=== PATIENT | male | born 1965 | race Caucasian/White ===

== ENCOUNTER 2017-01-29 22:49 | Inpatient (IN) | payer OTHER, MEDICARE ==
[~2017-01-29] VITALS: Ht 170.2 cm; Wt 72.2 kg
[~2017-01-29 22:49] MED LIST: ALDA25TA PO; ASPI81TA82 PO; CORE6.25 PO; DOXY100T PO; FURO1TAB93 PO; LISI-360 PO; NITR0.4S SL; ZOCO40TA PO
[2017-01-29] MEDS ORDERED: ASPI1TAB69 PO (22:54)
[2017-01-29] MEDS ORDERED: CARV6.25 PO (22:54)
[2017-01-29] MEDS ORDERED: SPIR25 PO (22:55)
[2017-01-29] MEDS ORDERED: LISI10TA3 PO (22:55)
[2017-01-29] MEDS ORDERED: SIMV40TA PO (22:55)
[2017-01-29 22:56] VITALS: BP 130/81; PULSE 103; RESP 20; TEMP 98.2; O2SAT 95
[2017-01-29 23:14] VITALS: RESP 16; O2SAT 97
[2017-01-29] MEDS ORDERED: NITROGLYCERIN 2% OINT 1 GM PACKET TOP ONE (23:15)
[2017-01-29] MEDS ORDERED: ASPIRIN 81 MG CHEW TAB PO ONE (23:15)
[2017-01-29] MEDS ORDERED: SODIUM CHLORIDE 0.9% FLUSH 10 ML FLUSH IVF PRN (23:15)
[2017-01-29] MEDS ORDERED: SODIUM CHLORID 0.9% 500 ML INJ 500 ML IV ONE (23:15)
[2017-01-29] MEDS ORDERED: NITROGLYCERIN 0.4 MG SL 25 TABS/BTL SL ONE (23:15)
[2017-01-29 23:23] LABS: AUTOMATED NEUTROPHIL # 6.3 TH/MM3 (1.8-7.7); BASOPHIL # 0.1 TH/MM3 (0-0.2); BASOPHIL % 0.6 % (0.0-2.0); EOSINOPHIL # 0.1 TH/MM3 (0-0.4); EOSINOPHIL % 0.7 % (0.0-4.0); HEMATOCRIT 45.9 % (39.0-51.0); HEMO FLAGS DIFF FINAL; LYMPH % 24.8 % (9.0-44.0); LYMPHOCYTE # 2.6 TH/MM3 (1.0-4.8); MEAN CELL VOLUME 91.9 FL (80.0-100.0); MEAN CORPUSCULAR HEMOGLOBIN 32.7 PG (27.0-34.0); MEAN CORPUSCULAR HGB CONC 35.6 % (32.0-36.0); NEUT % 60.9 % (16.0-70.0); PLATELET COUNT 104 TH/MM3 (150-450); RED BLOOD COUNT 4.99 MIL/MM3 (4.50-5.90); RED CELL DISTRIBUTION WIDTH 14.6 % (11.6-17.2); WHITE BLOOD COUNT 10.3 TH/MM3 (4.0-11.0)
[2017-01-29 23:36] LABS: APTT (PATIENT) 33.1 SEC (24.3-30.1); INTERNATIONAL NORMALIZED RATIO 1.2 RATIO; PROTHROMBIN TIME - PATIENT 13.4 SEC (9.8-11.6)
[2017-01-29 23:43] LABS: ANION GAP 14 MEQ/L (5-15)
--- NOTE | 2017-01-29 23:44 | RADRPT ---
EXAM DATE/TIME: 01/29/2017 23:29 [place] COMPARISON: No previous studies available for comparison. INDICATIONS : Chest pain. MEDICAL HISTORY : None. SURGICAL HISTORY : Defibrillator. ENCOUNTER: Initial ACUITY: 1 day PAIN SCORE: 5/10 LOCATION: Bilateral chest FINDINGS: A single view of the chest demonstrates the lungs to be symmetrically aerated without evidence of mas s, infiltrate or effusion. The heart size is mildly enlarged with perihilar edema. Atherosclerotic c hanges noted in the aorta. There is a left subclavian AV sequential transvenous patient with defibril lator leads. Osseous structures are intact. CONCLUSION: Cardiomegaly with no evidence of pulmonary edema. Nagi Dan MD on January 29, 2017 at 23:41 Board Certified Radiologist. This report was verified electronically.
[2017-01-29 23:46] LABS: ALKALINE PHOSPHATASE 139 U/L (45-117); ALT (GPT) 108 U/L (12-78); AST (GOT) 182 U/L (15-37); BICARBONATE 20.7 MEQ/L (21.0-32.0); BLOOD UREA NITROGEN 17 MG/DL (7-18); CHLORIDE 99 MEQ/L (98-107); CREATINE KINASE 828 U/L (39-308); GLOMERULAR FILTRATION RATE 72 ML/MIN (>89); MAGNESIUM 1.8 MG/DL (1.5-2.5); POTASSIUM 3.8 MEQ/L (3.5-5.1); SODIUM (NA) 134 MEQ/L (136-145); TOTAL BILIRUBIN ADULT 4.5 MG/DL (0.2-1.0)
[2017-01-30] VITALS (18 sets, daily range): BP systolic 100–135; BP diastolic 62–84; PULSE 75–99; RESP 10–21; TEMP 97.9–98.5; O2SAT 95–98
--- NOTE | 2017-01-30 | PD ---
HPI Chief Complaint: Chest Pain Time Seen by Provider: 23:12 Travel History International Travel<30 days: No Contact w/Intl Traveler<30days: No Traveled to known affect area: No History of Present Illness HPI The patient is a 51 year old male who presents to the [facility] emergency department with a history of cardiomyopathy with an ejection fraction of 13%, associated with fluid overload 3 years ago requiring a pacemaker and defibrillator placement who presents with a history of binging on alcohol and crack cocaine without taking any of his usual medications over the last 3 days. He reports that he last used crack cocaine an hour and a half ago. He reports that he drink alcohol on a daily basis and usually drinks approximately a 12 pack per day. The patient also reports that he smokes one pack of cigarettes daily. The patient reports that he has generalized weakness currently. He reports that he has chest tightness in the center of his chest. He reports having associated shortness of breath with exertion. He cannot recall when he last had a stress test. 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 The patient reports that he lives in [place]. The patient reports that he has not been eating since Sunday. The patient denies any recent fevers, worsening congestion, however he does have a chronic cough related to smoking, neck pain, abdominal pain, vomiting, diarrhea , urinary symptoms, or neurologic symptoms. [facility] Past Medical History Narrative Medical The patient's past medical history is significant for a cardiomyopathy status post pacemaker and defibrillator placement, arthritis, hyperlipidemia, congestive heart failure, hypertension. Arthritis: Yes Cardiovascular Problems: Yes (pacer/defib 3yrs ago ) High Cholesterol: Yes Congestive Heart Failure: Yes Hypertension: Yes Medical other: Yes (HEP C ) Tetanus Vaccination: Unknown Influenza Vaccination: No Past Surgical History Narrative Surgical The patient's past surgical history is significant for an AICD and pacemaker placement, tonsillectomy. Cardiac Surgery: Yes Pacemaker: Yes (aicd) Tonsillectomy: Yes Social History Alcohol Use: Yes (beer) Tobacco Use: Yes (pack a day ) Substance Use: Yes (crack) Allergies-Medications (Allergen,Severity, Reaction): Coded Allergies: No Known Allergies (Unverified , 01/29/17) Reported Meds & Prescriptions Reported Meds & Active Scripts Active Reported Simvastatin 40 Mg Tab 40 Mg PO HS Aldactone (Spironolactone) 25 Mg Tab 25 Mg PO BIDPC Lisinopril 10 Mg Tab 10 Mg PO DAILY Coreg (Carvedilol) 6.25 Mg Tab 6.25 Mg PO BID Aspirin 81 Mg Tabdr 81 Mg PO DAILY Review of Systems Except as stated in HPI: all other systems reviewed are Neg General / Constitutional: No: Fever Eyes: No: Visual changes HENT: No: Headaches Cardiovascular: Positive: Chest Pain or Discomfort (chest pressure), Dyspnea on exertion Respiratory: Positive: Cough (chronic smoking-related cough), Shortness of Breath Gastrointestinal: No: Nausea, Vomiting, Diarrhea, Abdominal Pain Genitourinary: No: Dysuria Musculoskeletal: No: Pain Skin: No Rash Neurologic: Positive: Weakness (generalized weakness), No: Focal Abnormalities , Change in Mentation, Slurred Speech, Sensory Disturbance Psychiatric: No: Depression Endocrine: No: Polydipsia Hematologic/Lymphatic: No: Easy Bruising Physical Exam Narrative General: The patient is a well-developed well-nourished male in no acute distress. Sleeping on my arrival to the room. Head and Neck exam: Head is normocephalic atraumatic. Eyes: EOMI, pupils are equal round and reactive to light. Nose: Midline septum with pink mucous membranes Mouth: Dentition unremarkable. Moist mucus membranes. Posterior oropharynx is not erythematous. No tonsillar hypertrophy. Uvula midline. Airway patent. Neck: No palpable lymphadenopathy. No nuchal rigidity. No thyromegaly. Cardiovascular: Sinus tachycardia in the low 100s without murmurs, gallops, or rubs. No pulse deficit to the extremities and simultaneous auscultation and palpation of his radial artery. Lungs: Soft expiratory wheezes audible posteriorly. No accessory muscle use. No tripoding. No paroxysmal abdominal breathing. No conversational dyspnea. Abdomen: Soft, without tenderness to palpation in all 4 quadrants of the abdomen. No guarding, rebound, or rigidity. Normal bowel sounds are audible. No tenderness on palpation of McBurney's point. Extremities: No clubbing, cyanosis, or edema. 2+ pulses in all 4 extremities. No calf tenderness on palpation. Back: No costovertebral angle tenderness to palpation. Neurologic Exam: Grossly nonfocal. Skin Exam: No rash noted. Intact skin that is warm and dry. Data Data Last Documented VS Vital Signs Date Time Temp Pulse Resp B/P Pulse Ox O2 Delivery O2 Flow Rate FiO2 01/30/17 01:28 93 18 122/83 97 Room Air 01/29/17 22:56 98.2 Orders Electrocardiogram (01/29/17 23:12) B-Type Natriuretic Peptide (01/29/17 23:12) Ckmb (Isoenzyme) Profile (01/29/17 23:12) Complete Blood Count With Diff (01/29/17 23:12) Comprehensive Metabolic Panel (01/29/17 23:12) Magnesium (Mg) (01/29/17 23:12) Prothrombin Time / Inr (Pt) (01/29/17 23:12) Act Partial Throm Time (Ptt) (01/29/17 23:12) Troponin I (01/29/17:12) Lipase (01/29/17 23:12) Chest, Single Ap (01/29/17 23:12) Ecg Monitoring (01/29/17 23:12) Bilateral Bp Monitoring (01/29/17 23:12) Iv Access Insert/Monitor (01/29/17 23:12) Oximetry (01/29/17 23:12) Oxygen Administration (01/29/17 23:12) Aspirin Chew (Aspirin Chew) (01/29/17 23:15) Nitroglycerin 2% Oint (Nitroglycerin 2% (01/29/17 23:15) Sodium Chloride 0.9% Flush (Ns Flush) (01/29/17 23:15) Nitroglycerin Sl (Nitrostat Sl) (01/29/17 23:15) Sodium Chlorid 0.9% 500 Ml Inj (Ns 500 M (01/29/17 23:15) Drug Screen, Random Urine (01/29/17 23:14) Alcohol (Ethanol) (01/29/17 23:15) CKMB (01/29/17 23:15) CKMB% (01/29/17 23:15) Admit Order (Ed Use Only) (01/30/17 01:30) Labs Laboratory Tests Test 01/29/17 01/30/17:15 01:20 White Blood Count 10.3 TH/MM3 Red Blood Count 4.99 MIL/MM3 Hemoglobin 16.3 GM/DL Hematocrit 45.9 % Mean Corpuscular Volume 91.9 FL Mean Corpuscular Hemoglobin 32.7 PG Mean Corpuscular Hemoglobin 35.6 % Concent Red Cell Distribution Width 14.6 % Platelet Count 104 TH/MM3 Mean Platelet Volume 9.2 FL Neutrophils (%) (Auto) 60.9 % Lymphocytes (%) (Auto) 24.8 % Monocytes (%) (Auto) 13.0 % Eosinophils (%) (Auto) 0.7 % Basophils (%) (Auto) 0.6 % Neutrophils # (Auto) 6.3 TH/MM3 Lymphocytes # (Auto) 2.6 TH/MM3 Monocytes # (Auto) 1.3 TH/MM3 Eosinophils # (Auto) 0.1 TH/MM3 Basophils # (Auto) 0.1 TH/MM3 CBC Comment DIFF FINAL Differential Comment Prothrombin Time 13.4 SEC Prothromb Time International 1.2 RATIO Ratio Activated Partial 33.1 SEC Thromboplast Time B-Type Natriuretic Peptide 810 PG/ML Sodium Level 134 MEQ/L Potassium Level 3.8 MEQ/L Chloride Level 99 MEQ/L Carbon Dioxide Level 20.7 MEQ/L Anion Gap 14 MEQ/L Blood Urea Nitrogen 17 MG/DL Creatinine 1.07 MG/DL Estimat Glomerular Filtration 72 ML/MIN Rate Random Glucose 84 MG/DL Calcium Level 8.4 MG/DL Magnesium Level 1.8 MG/DL Total Bilirubin 4.5 MG/DL Aspartate Amino Transf 182 U/L (AST/SGOT) Alanine Aminotransferase 108 U/L (ALT/SGPT) Alkaline Phosphatase 139 U/L Total Creatine Kinase 828 U/L Creatine Kinase MB 17.9 NG/ML Creatine Kinase MB % 2.2 % Troponin I 0.11 NG/ML Total Protein 8.0 GM/DL Albumin 3.2 GM/DL Lipase 172 U/L Ethyl Alcohol Level 136 MG/DL Urine Opiates Screen NEG Urine Barbiturates Screen NEG Urine Amphetamines Screen NEG Urine Benzodiazepines Screen NEG Urine Cocaine Screen POS Urine Cannabinoids Screen NEG MDM Medical Decision Making Medical Screen Exam Complete: Yes Emergency Medical Condition: Yes Medical Record Reviewed: Yes Interpretation(s) Last Impressions Chest X-Ray 01/29/17 0210 Signed Impressions: Service Date/Time: Sunday, January 29, 2017 23:29 - CONCLUSION: Cardiomegaly with no evidence of pulmonary edema. Nagi Dan MD Differential Diagnosis Acute coronary syndrome, versus dehydration, versus electrolyte derangements, versus alcohol related gastritis, versus esophagitis, versus peptic ulcer disease, versus pancreatitis Narrative Course During the course of the patients emergency department visit, the patients history, examination, and differential diagnosis were reviewed with the patient. The patient had IV access obtained and blood work sent for analysis. The patient was placed on a project buyer with oximetry and blood pressure monitoring. An EKG was done on arrival. The patient's EKG reveals a paced rhythm heart rate of 101, no acute ST segment changes. The patient was initially provided normal saline a 500 mL bolus 1, sublingual nitroglycerin times one when necessary chest pain, nitroglycerin 1 inch to the chest wall, aspirin 162 mg by mouth 1. The patients laboratory studies were reviewed and remarkable for a CBC that shows a white count of 10.3, hemoglobin 16.3, platelets 104 with 13 monocytes, CMP is remarkable for sodium of 134, chloride 99, CO2 20.7, GFR 72, calcium 8.4 , total bilirubin 4.5, AST 182, ALT 108, alkaline phosphatase 139. CPK is a 28 , CK-MB percent is 2.2, troponin I of 0.11, BNP is 810, PT 13.4, INR 1.2, PTT 33.1, urine drug screen positive for cocaine, alcohol level [id number] Radiology studies were reviewed and remarkable for a chest x-ray that shows cardiomegaly with no evidence of pulmonary edema. The patients results were discussed with the patient, including the plan of care. I explained that further testing and/ or monitoring is indicated based on the patients history, examination, and/ or laboratory findings. Therefore, I recommended admission for additional evaluation. The patient expressed understanding and was agreeable with this plan. The patient was admitted to the hospital in stable condition and sent to a bed under the care of the [facility] service. Physician Communication Physician Communication The patient's case was discussed with Dr. Varma who did agree to admit the patient for further evaluation and treatment at this time. Diagnosis Primary Impression: Chest pain, rule out acute myocardial infarction Additional Impressions: History of cardiomyopathy Elevated troponin Admitting Information Admitting Physician Requests: Admit Michelle Roque MD January 30, 2017 00:00
[2017-01-30 00:01] LABS: CKMB 17.9 NG/ML (0.5-3.6)
[2017-01-30 01:56] LABS: AMPHETAMINE, URINE NEG (NEG); BARBITURATES, URINE NEG (NEG); COCAINE, URINE POS (NEG)
[2017-01-30] MEDS ORDERED: NITROGLYCERIN 0.4 MG SL 25 TABS/BTL SL PRN (02:30)
[2017-01-30] MEDS ORDERED: SODIUM CHLORIDE 0.9% FLUSH 10 ML FLUSH IV FLUSH PRN ×2 (02:30→15:00)
[2017-01-30] MEDS ORDERED: NALOXONE HCL 0.4 MG/ML AMP IV PRN (02:30)
[2017-01-30] MEDS: ENOXAPARIN SODIUM 80 MG/0.8 ML SYRINGE SQ SCH ×2 (03:23→14:30)
[2017-01-30 05:41] LABS: CKMB 15.9 NG/ML (0.5-3.6)
[2017-01-30] MEDS ORDERED: SODIUM CHLORIDE 0.9% FLUSH 10 ML FLUSH IV FLUSH SCH (09:00)
[2017-01-30] MEDS ORDERED: ASPIRIN EC 325 MG TABEC PO SCH (09:00)
--- NOTE | 2017-01-30 11:10 | HHI.HP ---
HPI Service [facility] Hospitalists Primary Care Physician Non-Staff Admission Diagnosis cp ro mi, h/o cardiomyopathy, intermediate trop, h/o crack use Diagnoses: Chief Complaint: chest pain Travel History International Travel<30 Days: No Contact w/Intl Traveler <30 Da: No Traveled to Known Affected Are: No History of Present Illness The patient is a 51 year old male with PMH of severe cardiomyopathy with EF of 13% with AICD/PM placement 3 years ago, polysubstance use ( cocaine, EtOH, tobacco), hep C, HTN, HlD, arthritis who presents to the [facility] emergency department with complaints of chest pain after binging on alcohol and crack cocaine without taking any of his usual medications over the last 3 days. He reports that he last used crack cocaine an hour and a half just prior to arrival to ED. He reports that he drink alcohol on a daily basis and usually drinks approximately a 12 pack per day. The patient also reports that he smokes one pack of cigarettes daily. The patient reports that he has generalized weakness currently. He reports that he has chest tightness in the center of his chest 4/10 in intensity. He reports having associated shortness of breath with exertion. He cannot recall when he last had a stress test. He reports that he is due to see his supervisor anodizing in [place] in 2 and 1/2 months. The patient reports that he lives in [place]. The patient reports that he has not been eating since Sunday. Says he had been drinkling and snorting cocaine all this time since Sunday. The patient denies any recent fevers, worsening congestion, however he does have a chronic cough related to smoking. Denies neck pain, abdominal pain, vomiting, diarrhea, urinary symptoms, or neurologic symptoms. Says he has no tremors at this time but he had withdrawal symptoms in the past. Review of Systems ROS Limitations: Clinical Condition, Intoxication Except as stated in HPI: all other systems reviewed are Neg Past Family Social History Past Medical History Cardiomyopathy status post pacemaker and defibrillator placement [address] Hanna cardiology, arthritis, hyperlipidemia, congestive heart failure, hypertension, hep C, polysubstance abuse (cocaine, EtOH, tobacco). Past Surgical History AICD and pacemaker placement, tonsillectomy. Reported Medications Reported Meds & Active Scripts Active Reported Simvastatin 40 Mg Tab 40 Mg PO HS Aldactone (Spironolactone) 25 Mg Tab 25 Mg PO BIDPC Lisinopril 10 Mg Tab 10 Mg PO DAILY Coreg (Carvedilol) 6.25 Mg Tab 6.25 Mg PO BID Aspirin 81 Mg Tabdr 81 Mg PO DAILY Allergies: Coded Allergies: No Known Allergies (Unverified , 01/29/17) Family History His mother had 2 strokes at the age of 79 Father of heart attack at the age of 48 History of cholecystectomy Social History EtOH use: beer 12 beers daily Tobacco use: pack a day1 and 1/2 PPD since age of 16 last use was last night before coming to ED Illicit drug use: crack cocaine, last use was last night before coming to ED Physical Exam Vital Signs Vital Signs Date Time Temp Pulse Resp B/P Pulse Ox O2 Delivery O2 Flow Rate FiO2 01/30/17 10:00 99 18 121/65 96 Room Air 01/30/17 08:00 94 18 123/84 98 Room Air 01/30/17 06:10 92 18 112/73 97 Room Air 01/30/17 04:54 75 18 121/67 97 Room Air 01/30/17 03:40 95 18 103/67 97 Room Air 01/30/17 01:28 93 18 122/83 97 Room Air 01/29/17 23:14 16 97 Room Air 01/29/17 23:14 97 Room Air 01/29/17 22:56 98.2 103 20 130/81 95 Physical Exam GENERAL: This is a skinny 51 yo male, well-nourished, well-developed patient, in no apparent distress. SKIN: No rashes, ecchymoses or lesions. Cool and dry. HEAD: Atraumatic. Normocephalic. No temporal or scalp tenderness. EYES: Pupils equal round and reactive. Extraocular motions intact. No scleral icterus. No injection or drainage. ENT: Nose without bleeding, purulent drainage or septal hematoma. Throat without erythema, tonsillar hypertrophy or exudate. Uvula midline. Airway patent. NECK: Trachea midline. No JVD or lymphadenopathy. Supple, nontender, no meningeal signs. CARDIOVASCULAR: AICD right upper chest . Regular rate and rhythm without murmurs , gallops, or rubs. RESPIRATORY: Clear to auscultation. Breath sounds equal bilaterally. No wheezes , rales, or rhonchi. GASTROINTESTINAL: Abdomen soft, non-tender, nondistended. No hepato-splenomegaly , or palpable masses. No guarding. MUSCULOSKELETAL: Extremities without clubbing, cyanosis, or edema. No joint tenderness, effusion, or edema noted. No calf tenderness. Negative Homans sign bilaterally. NEUROLOGICAL: Awake and alert. Cranial nerves II through XII intact. Motor and sensory grossly within normal limits. Five out of 5 muscle strength in all muscle groups. Normal speech. Laboratory Laboratory Tests Test 01/29/17 01/30/17 01/30/17 23:15 01:20 04:39 White Blood Count 10.3 Red Blood Count 4.99 Hemoglobin 16.3 Hematocrit 45.9 Mean Corpuscular Volume 91.9 Mean Corpuscular Hemoglobin 32.7 Mean Corpuscular Hemoglobin 35.6 Concent Red Cell Distribution Width 14.6 Platelet Count 104 Mean Platelet Volume 9.2 Neutrophils (%) (Auto) 60.9 Lymphocytes (%) (Auto) 24.8 Monocytes (%) (Auto) 13.0 Eosinophils (%) (Auto) 0.7 Basophils (%) (Auto) 0.6 Neutrophils # (Auto) 6.3 Lymphocytes # (Auto) 2.6 Monocytes # (Auto) 1.3 Eosinophils # (Auto) 0.1 Basophils # (Auto) 0.1 CBC Comment DIFF FINAL Differential Comment Prothrombin Time 13.4 Prothromb Time International 1.2 Ratio Activated Partial 33.1 Thromboplast Time B-Type Natriuretic Peptide 810 Sodium Level 134 Potassium Level 3.8 Chloride Level 99 Carbon Dioxide Level 20.7 Anion Gap 14 Blood Urea Nitrogen 17 Creatinine 1.07 Estimat Glomerular Filtration 72 Rate Random Glucose 84 Calcium Level 8.4 Magnesium Level 1.8 Total Bilirubin 4.5 Aspartate Amino Transf 182 (AST/SGOT) Alanine Aminotransferase 108 (ALT/SGPT) Alkaline Phosphatase 139 Total Creatine Kinase 828 576 Creatine Kinase MB 17.9 15.9 Creatine Kinase MB % 2.2 2.8 Troponin I 0.11 0.08 Total Protein 8.0 Albumin 3.2 Lipase 172 Ethyl Alcohol Level 136 Urine Opiates Screen NEG Urine Barbiturates Screen NEG Urine Amphetamines Screen NEG Urine Benzodiazepines Screen NEG Urine Cocaine Screen POS Urine Cannabinoids Screen NEG Result Diagram: 01/29/17231401/29/172314 Imaging Last Impressions Chest X-Ray 01/29/172311 Signed Impressions: Service Date/Time: Sunday, January 29, 2017 23:29 - CONCLUSION: Cardiomegaly with no evidence of pulmonary edema. Nagi Dan MD Assessment and Plan Assessment and Plan 51-year-old male with: Elevated troponin. Chest pain, rule out acute myocardial infarction, likely 2/2 cocaine use. History of cardiomyopathy Polysubstance use( cocaine, EtOH, Tobacco use) Thrombocytopenia PLT 104 on admission. Monitor for bleeding. Transaminitis ( AST 182, ALT 108 On admission). Hep C. Coagulopathy INR 1.2 Monitor for bleeding. Monitor INR, CMP. HTN HLD EKG reveals a paced rhythm heart rate of 101, no acute ST segment changes. Initial Troponin 0.11 on admission Trend trops Monitor on telemetry Check 2D ECHO Check AICD Consult cardiology Chest x-ray reviewed that shows cardiomegaly with no evidence of pulmonary edema. Received normal saline a 500 mL bolus 1, sublingual nitroglycerin x1, nitroglycerin 1 inch to the chest wall, aspirin 162 mg by mouth 1 in the ED Continue Lisinopril 10 Mg PO DAILY, Aldactone 25 Mg PO BIDPC, Aspirin 81 Mg Tabdr 81 Mg PO DAILY, Simvastatin 20 Mg PO HS HOLD Carvedilol 6.25 Mg PO BID ( patient with cocaine use) Urine drug screen positive for cocaine, alcohol level 136. Start CIWA protocol. Monitor lytes. Monitor for withdrawal symptoms. Counselled extensively regarding polysubstance use Monitor VS DVT ppx SCD/TEDs Discussed Condition With Patient, nurse Physician Certification 2 Midnight Certification Type: Admission for Inpatient Services Order for Inpatient Services The services are ordered in accordance with Medicare regulations or non- Medicare payer requirements, as applicable. In the case of services not specified as inpatient-only, they are appropriately provided as inpatient services in accordance with the 2-midnight benchmark. Estimated LOS (days): 3 days is the estimated time the patient will need to remain in the hospital, assuming treatment plan goals are met and no additional complications. Post-Hospital Plan: Home Shoshana Miles MD January 30, 2017 11:10
--- NOTE | 2017-01-30 14:19 | EKG ---
Date Performed: 01/29/2017 Time Performed: 22:56:11 PTAGE: 51 years EKG: ELECTRONIC VENTRICULAR PACEMAKER ABNORMAL RHYTHM ECG NO PREVIOUS TRACING DOCTOR: Gold James Interpretating Date/Time 01/30/2017 14:17:16
--- NOTE | 2017-01-30 14:19 | EKG ---
Date Performed: 01/30/2017 Time Performed: 05:22:46 PTAGE: 51 years EKG: ELECTRONIC VENTRICULAR PACEMAKER ABNORMAL RHYTHM ECG NO PREVIOUS TRACING DOCTOR: Gold James Interpretating Date/Time 01/30/2017 14:17:11
[2017-01-30] MEDS ORDERED: cloNIDine HCL 0.1 MG TAB PO PRN (15:00)
[2017-01-30] MEDS ORDERED: LORazepam 1 MG TAB PO PRN (15:00)
[2017-01-30] MEDS ORDERED: FLUMAZENIL 0.5 MG/5 ML VIAL IV PUSH PRN (15:00)
[2017-01-30] MEDS ORDERED: LORazepam 2 MG/ML VIAL IV PUSH PRN ×3 (15:00)
[2017-01-30] MEDS ORDERED: CHLORHEXIDINE GLUCONATE 2 % 1 PACK (2 CLOTHS)(extra cloths) TOPICAL PRN (15:00)
[2017-01-30] MEDS ORDERED: ONDANSETRON HCL 4 MG/2 ML VIAL IV PRN (15:00)
[2017-01-30] MEDS ORDERED: LORazepam 2 MG TAB PO PRN (15:00)
[2017-01-30 15:02] LABS: CKMB 12.3 NG/ML (0.5-3.6)
[2017-01-30] MEDS ORDERED: MORPHINE SULFATE 4 MG/ML INJ IV PUSH PRN (15:15)
--- NOTE | 2017-01-30 18:29 | MB ---
cc: DAVID DIEHL MD DATE OF CONSULTATION 01/30/2017 REASON FOR CONSULTATION Chest pain and elevated cardiac enzymes. HISTORY OF THE PRESENT ILLNESS Mr. Figueroa is a 51-year-old man who does have a history of an alcoholic cardiomyopathy with a [employer] ICD. He reports he had been drinking a lot of alcohol and subsequently tried some crack cocaine. He has no real recollection of the specifics but notes that he believes his ICD went off sometime over the weekend. He cannot recall much in the way of details. He does continue to have intermittent episodes now of chest pain as well as other muscle cramps. The patient reports that he has not eaten in four days. PAST MEDICAL HISTORY Significant for: 1. Non ischemic cardiomyopathy with an EF of about 15%. 2. ICD placement. 3. Hypertension. 4. Hyperlipidemia. 5. Congestive heart failure. 6. Hepatitis C. 7. Polysubstance abuse. 8. Alcohol abuse 9. And tobacco abuse. MEDICATIONS Outpatient medications reportedly include: 1. Simvastatin. 2. Aldactone. 3. Lisinopril. 4. Coreg. 5. Aspirin. ALLERGIES NO KNOWN DRUG ALLERGIES. FAMILY HISTORY Positive for CAD and alcohol abuse. SOCIAL HISTORY The patient does continue to drink and smoke as well as occasionally has cocaine. REVIEW OF SYSTEMS Except as mentioned in the HPI all 12 systems negative. PHYSICAL EXAMINATION VITAL SIGNS: On physical examination vital signs 98.3, 83, 100/62. GENERAL: He is a well-appearing man who is in no apparent distress. NECK: Free from JVD. LUNGS: Are bilaterally clear to auscultation. CARDIOVASCULAR: He has a normal S1-S2. Did not appreciate murmurs, rubs or gallops. ABDOMEN: Soft. EXTREMITIES: Are free from edema. LABORATORY FINDINGS Significant for serial troponins of 0.11 / 0.08 / 0.08. His CKMB percent are all less than 5.0 and his initial total CK was elevated at 828. Urine screen was positive for cocaine and alcohol. EKG shows paced rhythm. IMPRESSION Chest pain with elevated troponin - the patient does have a history of a nonischemic cardiomyopathy and does have an elevated troponin. The MB percent was negative and actually more consistent with rhabdomyolysis picture versus ischemic picture. At this point I would like to obtain some of his previous records prior to considering any kind of ischemia workup as this is a relatively low likelihood. Acute on chronic systolic heart failure - the patient does have mildly elevated troponin and elevated BNP, perihilar edema on chest x-ray as well as a known cardiomyopathy. He is on lisinopril. Beta-blockers are felt relatively contraindicated with his crack cocaine. I would place him on some diuretics given his profoundly low ejection fraction. Polysubstance abuse - the patient was counseled to quit. Tobacco abuse - the patient was counseled to quit. David Diehl M.D. BAB/KK /6:00 PM /6:14 PM
[2017-01-30] MEDS: SPIRONOLACTONE 25 MG TAB PO SCH (19:06)
[2017-01-30] MEDS ORDERED: PRAVASTATIN SOD 80 MG TAB PO SCH (21:00)
[2017-01-30] MEDS: FAMOTIDINE 20 MG TAB PO SCH (21:44)
[2017-01-30] MEDS: POTASSIUM CHLORIDE 20 MEQ CONTROLLED RELEASE TAB PO SCH (21:45)
[2017-01-30] MEDS: SODIUM CHLORIDE 0.9% FLUSH 10 ML FLUSH IV FLUSH SCH (21:45)
[2017-01-30] MEDS: LORazepam 2 MG/ML VIAL IV PUSH PRN (21:48)
[2017-01-31] VITALS (15 sets, daily range): BP systolic 103–132; BP diastolic 63–78; PULSE 71–99; RESP 14–27; TEMP 97.9–98.8; O2SAT 94–98
[2017-01-31] MEDS: ENOXAPARIN SODIUM 80 MG/0.8 ML SYRINGE SQ SCH ×2 (02:30→14:30)
[2017-01-31] MEDS: LORazepam 2 MG/ML VIAL IV PUSH PRN (03:14)
[2017-01-31] MEDS ORDERED: CHLORHEXIDINE GLUCONATE 2 % 1 PACK (2 CLOTHS)(taper/protocol) TOPICAL SCH (04:00)
[2017-01-31 05:10] LABS: ALT (GPT) 93 U/L (12-78); ANION GAP 7 MEQ/L (5-15); AST (GOT) 158 U/L (15-37); BICARBONATE 28.5 MEQ/L (21.0-32.0); BLOOD UREA NITROGEN 13 MG/DL (7-18); CHLORIDE 103 MEQ/L (98-107); GLOMERULAR FILTRATION RATE 122 ML/MIN (>89); MAGNESIUM 1.8 MG/DL (1.5-2.5); POTASSIUM 3.7 MEQ/L (3.5-5.1); SODIUM (NA) 138 MEQ/L (136-145)
[2017-01-31 05:12] LABS: ALKALINE PHOSPHATASE 173 U/L (45-117); TOTAL BILIRUBIN ADULT 2.9 MG/DL (0.2-1.0)
--- NOTE | 2017-01-31 06:21 | PD.CARD.PN ---
Subjective Subjective Remarks Pt c/o ache all over- no cardiac complaints Objective Medications Current Medications Medications (Trade) Dose Ordered Sig/Viviane Route Start Time Stop Time Status Last Admin (Narcan Inj) 0.4 mg UNSCH PRN IV 01/30/17 02:30 (Lovenox Inj) 75 mg Q12H SQ 01/30/17 02:30 01/31/17 02:30 (Nitrostat Sl) 0.4 mg Q5M PRN SL 01/30/17 02:30 Miscellaneous Information Patient in critical care unit? Ass... [id number] .XX 01/30/17 15:00 01/30/17 15:00 (Chlorhexidine 2% Cloth) 3 pack DAILY@04 TOPICAL 01/31/17 04:00 02/04/17 04:01 01/30/17 21:46 (Chlorhexidine 2% Cloth) 3 pack UNSCH PRN TOPICAL 01/30/17 15:00 02/04/17 14:58 (NS Flush) 2 ml UNSCH PRN IV FLUSH 01/30/17 15:00 (NS Flush) 2 ml BID IV FLUSH 01/30/17 21:00 01/30/17 21:45 (Folate) 1 mg DAILY PO 01/31/17 09:00 02/05/17 08:59 (Vitamin B1) 100 mg DAILY PO 01/31/17 09:00 (Theragran M Tab) 1 tab DAILY PO 01/31/17 09:00 02/05/17 08:59 (Zofran Inj) 4 mg Q6H PRN IV 01/30/17 15:00 (Pepcid) 20 mg BID PO 01/30/17 21:00 01/30/17 21:44 (Catapres) 0.1 mg Q6H PRN PO 01/30/17 15:00 (Romazicon Inj) 0.2 mg Q1M PRN IV PUSH 01/30/17 15:00 (Ativan) 1 mg Q4H PRN PO 01/30/17 15:00 (Ativan Inj) 1 mg Q4H PRN IV PUSH 01/30/17 15:00 01/31/17 03:14 (Ativan) 2 mg Q2H PRN PO 01/30/17 15:00 (Ativan Inj) 2 mg Q2H PRN IV PUSH 01/30/17 15:00 (Ativan Inj) 2 mg Q1H PRN IV PUSH 01/30/17 15:00 (Ativan Inj) 2 mg Q15M PRN IV PUSH 01/30/17 15:00 (Morphine Inj) 2 mg Q4HR PRN IV PUSH 01/30/17 15:15 (Ecotrin Ec) 81 mg DAILY PO 01/31/17 09:00 (Prinivil) 10 mg DAILY PO 01/31/17 09:00 (Aldactone) 25 mg BIDPC PO 01/30/17 18:00 01/30/17 19:06 (Pravachol) 80 mg HS PO 01/30/17 21:00 01/30/17 21:45 (Lasix) 40 mg BID@18 PO 01/31/17 09:00 (KCl) 20 meq Q12HR PO 01/30/17 21:00 01/30/17 21:45 Vital Signs / I&O Vital Signs Date Time Temp Pulse Resp B/P Pulse Ox O2 Delivery O2 Flow Rate FiO2 01/31/17 06:00 76 01/31/17 04:00 76 01/31/17 04:00 98.3 76 17 112/63 94 01/31/17 02:00 76 01/31/17 00:00 98.8 77 14 132/77 96 01/31/17 00:00 77 01/30/17 22:00 87 01/30/17 20:00 98.5 86 21 130/81 97 01/30/17 20:00 86 01/30/17 18:00 95 01/30/17 17:00 80 01/30/17 16:00 98.3 82 14 100/62 97 01/30/17 16:00 83 01/30/17 15:00 84 01/30/17 15:00 84 21 97 01/30/17 14:00 76 01/30/17 14:00 76 19 98 01/30/17 13:00 80 20 96 01/30/17 13:00 80 01/30/17 12:00 88 01/30/17 12:00 88 10 110/62 96 01/30/17 11:30 88 01/30/17 11:15 88 01/30/17 11:03 97.9 91 21 135/71 95 01/30/17 11:03 91 01/30/17 10:00 99 18 121/65 96 Room Air 01/30/17 08:00 94 18 123/84 98 Room Air I/O 01/30/17 01/30/17 01/30/17 01/31/17 01/31/17 01/31/17 07:00 15:00 23:00 07:00 15:00 23:00 Intake Total 240 ml 960 ml 970 ml 150 ml Output Total 800 ml 200 ml 450 ml Balance 240 ml 160 ml 770 ml -300 ml Intake Oral 240 ml 960 ml 970 ml 150 ml Output Urine Total 800 ml 200 ml 450 ml # Voids 1 # Bowel Movements 1 1 Physical Exam GENERAL: Well developed, well nourished. No acute distress. HEENT: Jugular venous pressure is normal. CHEST: Lungs clear to auscultation bilaterally. Unlabored respiratory effort. CARDIAC: Regular rate and rhythm without S3, S4, or murmur. ABDOMEN: Soft, nontender, no hepatosplenomegaly. Bowel sounds present. EXTREMITIES: No clubbing, cyanosis, or edema. Laboratory Laboratory Tests Test 01/30/17 01/30/17 01/31/17 11:05 13:52 03:53 Nasal Screen MRSA (PCR) MRSA NOT DETECTED Total Creatine Kinase 411 U/L Creatine Kinase MB 12.3 NG/ML Creatine Kinase MB % 3.0 % Troponin I 0.08 NG/ML Sodium Level 138 MEQ/L Potassium Level 3.7 MEQ/L Chloride Level 103 MEQ/L Carbon Dioxide Level 28.5 MEQ/L Anion Gap 7 MEQ/L Blood Urea Nitrogen 13 MG/DL Creatinine 0.68 MG/DL Estimat Glomerular Filtration 122 ML/MIN Rate Random Glucose 82 MG/DL Calcium Level 8.7 MG/DL Phosphorus Level 2.0 MG/DL Magnesium Level 1.8 MG/DL Total Bilirubin 2.9 MG/DL Aspartate Amino Transf 158 U/L (AST/SGOT) Alanine Aminotransferase 93 U/L (ALT/SGPT) Alkaline Phosphatase 173 U/L B-Type Natriuretic Peptide 299 PG/ML Total Protein 6.9 GM/DL Albumin 2.7 GM/DL Assessment and Plan Assessment and Plan Chest pain with elevated troponin - the patient does have a history of a nonischemic cardiomyopathy and does have an elevated troponin. The MB percent was negative and actually more consistent with rhabdomyolysis picture versus ischemic picture. D/C simvastatin as out patient -ICD check does show VT with shock on 01/27 (when he did ETOH and crack) -trop felt secondary to shock, no further work up -ok for d/c and follow up with Dr Jackson Acute on chronic systolic heart failure - appears reasonably compensated -ECHO pending Lipids- avoid simvastatin with rhabdo ETOH and Crack - asked to stop ok for rehab from CV perspective Alisson Diehl MD January 31, 2017 06:21
[2017-01-31] MEDS ORDERED: ASPIRIN EC 81 MG TABEC PO SCH (09:00)
[2017-01-31] MEDS ORDERED: LISINOPRIL 10 MG TAB PO SCH (09:00)
[2017-01-31] MEDS ORDERED: THIAMINE HCL 100 MG TAB PO SCH (09:00)
[2017-01-31] MEDS ORDERED: FOLIC ACID 1 MG TAB PO SCH (09:00)
[2017-01-31] MEDS ORDERED: MULTIVITAMINS/MINERALS THERAPEUTIC TAB PO SCH (09:00)
[2017-01-31] MEDS ORDERED: FUROSEMIDE 40 MG TAB PO SCH (09:00)
[2017-01-31] MEDS: POTASSIUM CHLORIDE 20 MEQ CONTROLLED RELEASE TAB PO SCH (11:22)
[2017-01-31] MEDS: SPIRONOLACTONE 25 MG TAB PO SCH (11:23)
[2017-01-31] MEDS: FAMOTIDINE 20 MG TAB PO SCH (11:23)
[2017-01-31] MEDS: SODIUM CHLORIDE 0.9% FLUSH 10 ML FLUSH IV FLUSH SCH (11:24)
--- NOTE | 2017-01-31 12:41 | HHI.PR ---
Subjective Remarks no complains of pain or aches right now we discuss about his lab results and he is inquiring about drug rehab programs telemetry - paced rhhtyhm- rate 80s states he has Dr. Sims as PCP and ff up with Dr. Jackson- manifest clerk Objective Vitals Vital Signs Date Time Temp Pulse Resp B/P Pulse Ox O2 Delivery O2 Flow Rate FiO2 01/31/17 12:00 98.0 81 19 110/78 97 01/31/17 11:00 87 19 97 01/31/17 10:00 71 01/31/17 10:00 71 17 96 01/31/17 09:00 74 16 96 01/31/17 08:03 79 17 123/78 96 01/31/17 08:00 97.9 79 18 96 01/31/17 08:00 79 01/31/17 07:00 80 16 95 01/31/17 06:00 76 01/31/17 04:00 76 01/31/17 04:00 98.3 76 17 112/63 94 01/31/17 02:00 76 01/31/17 00:00 98.8 77 14 132/77 96 01/31/17 00:00 77 01/30/17 22:00 87 01/30/17 20:00 98.5 86 21 130/81 97 01/30/17 20:00 86 01/30/17 18:00 95 01/30/17 17:00 80 01/30/17 16:00 98.3 82 14 100/62 97 01/30/17 16:00 83 01/30/17 15:00 84 01/30/17 15:00 84 21 97 01/30/17 14:00 76 01/30/17 14:00 76 19 98 01/30/17 13:00 80 20 96 01/30/17 13:00 80 I/O 01/30/17 01/30/17 01/30/17 01/31/17 01/31/17 01/31/17 07:00 15:00 23:00 07:00 15:00 23:00 Intake Total 240 ml 960 ml 970 ml 150 ml Output Total 800 ml 200 ml 450 ml Balance 240 ml 160 ml 770 ml -300 ml Intake Oral 240 ml 960 ml 970 ml 150 ml Output Urine Total 800 ml 200 ml 450 ml # Voids 1 # Bowel Movements 1 1 Result Diagram: 01/29/17 2315 01/31/17 0353 Imaging Last Impressions Chest X-Ray 01/29/17 2312 Signed Impressions: Service Date/Time: Sunday, January 29, 2017 23:29 - CONCLUSION: Cardiomegaly with no evidence of pulmonary edema. Nagi Dan MD Objective Remarks GENERAL: awake and alert, NAD SKIN: Warm and dry. HEAD: Normocephalic. EYES: No scleral icterus. No injection or drainage. NECK: Supple, trachea midline. No JVD or lymphadenopathy. CARDIOVASCULAR: Regular rate and rhythm without murmurs, gallops, or rubs. RESPIRATORY: Breath sounds equal bilaterally. No accessory muscle use. GASTROINTESTINAL: Abdomen soft, non-tender, nondistended. MUSCULOSKELETAL: No cyanosis, or edema. no calf swelling or tenderness BACK: Nontender without obvious deformity. No CVA tenderness. A/P Assessment and Plan 51-year-old male with: Elevated troponin. Chest pain, rule out acute myocardial infarction, likely 2/2 cocaine use. - rhabdomyolysis History of cardiomyopathy- not in clinical failure Polysubstance use( cocaine, EtOH, Tobacco use) Thrombocytopenia PLT 104 on admission. No signs of bleeding Transaminitis ( AST 182, ALT 108 On admission). Hep C. Coagulopathy INR 1.2 Monitor for bleeding. Monitor INR, CMP. HTN HLD EKG reveals a paced rhythm heart rate of 101, no acute ST segment changes. Initial Troponin 0.11 on admission Trend trops Monitor on telemetry seen by Cardiology- cleared for DC- OP ff up with Dr. Jackson Chest x-ray reviewed that shows cardiomegaly with no evidence of pulmonary edema. Lasix 40 mg po bid, KCL bid Continue Lisinopril 10 Mg PO DAILY, Aldactone 25 Mg PO BIDPC, Aspirin 81 Mg Tabdr 81 Mg PO DAILY, Simvastatin 20 Mg PO HS HOLD Carvedilol 6.25 Mg PO BID ( patient with cocaine use) - d/w him- restart as OP Elevated LFTs likely secodnary to CMP substance abuse- counselled extensively CM consult fro choice of OP drug rehab resources Discussed Condition With Patient diet heart healthy, NO COCAINE,ALCOHOL meds as above activity- weight bearing as tolerated FF up with CPP and Cardiology ion 1-3 days d/w him extensively- risk of suddenc ardiac and effects of substance abuse on his cardiac status Shilpa Pritchard MD January 31, 2017 12:41
[2017-01-31] MEDS ORDERED: VITA100T2 PO (12:49)
[2017-01-31] MEDS ORDERED: FURO40TA PO (12:49)
[2017-01-31] MEDS ORDERED: POTA20TA5 PO (12:49)
--- NOTE | 2017-01-31 17:33 | EC ---
Study Study Date:01/31/2017 STUDY CONCLUSIONS SUMMARY - Left ventricle: The cavity size was severely dilated. Wall thickness was normal. Systolic function was severely reduced. The estimated ejection fraction was 15%. Wall motion was normal; there were no regional wall motion abnormalities. - Mitral valve: Moderate to severe regurgitation. - Left atrium: The atrium was mildly dilated. - Tricuspid valve: Mild regurgitation. If LV function is below 40, please consider prescribing an ACEI or ARB or document rationale for non-use. PROCEDURE DATA STUDY STATUS: Elective. Procedure: Transthoracic echocardiography. Image quality was good. Scanning was performed from the parasternal, apical, and subcostal acoustic windows. Study completion: The patient tolerated the procedure well. Transthoracic echocardiography. M-mode, complete 2D, complete spectral Doppler, and color Doppler. Patient status: Inpatient. CARDIAC ANATOMY LEFT VENTRICLE: The cavity size was severely dilated. Wall thickness was normal. Systolic function was severely reduced. The estimated ejection fraction was 15%. Wall motion was normal; there were no regional wall motion abnormalities. AORTIC VALVE: Trileaflet; normal thickness leaflets. Doppler: Transvalvular velocity was within the normal range. There was no stenosis. No regurgitation. AORTA: Aortic root: The aortic root was normal in size. MITRAL VALVE: Structurally normal valve. Doppler: Transvalvular velocity was within the normal range. There was no evidence for stenosis. Moderate to severe regurgitation. LEFT ATRIUM: The atrium was mildly dilated. RIGHT VENTRICLE: The cavity size was normal. Wall thickness was normal. PULMONIC VALVE: Doppler: Transvalvular velocity was within the normal range. There was no evidence for stenosis. No regurgitation. TRICUSPID VALVE: Structurally normal valve. Doppler: Transvalvular velocity was within the normal range. Mild regurgitation. PULMONARY ARTERY: The main pulmonary artery was normal-sized. Systolic pressure was within the normal range. RIGHT ATRIUM: The atrium was normal in size. PERICARDIUM: There was no pericardial effusion. SYSTEMIC VEINS: Inferior vena cava: The vessel was normal in size. BASIC MEASUREMENTS ADULT Normal Left ventricle LV internal dimension, ED, chordal level, *77 mm 43-52 PLAX LV internal dimension, ES, chordal level, *73.7 mm 23-38 PLAX Fractional shortening, chordal level, PLAX *4 % >29 LV posterior wall thickness, ED 9.14 mm IVS/LVPW ratio, ED 1.02 <1.3 Volume, ED, MOD, 1-plane 297 ml Volume, ES, MOD, 1-plane 254 ml Ejection fraction, MOD, 1-plane 14 % Stroke volume, MOD, 1-plane 43 ml Volume, ED, MOD, 2-plane 288 ml Volume, ES, MOD, 2-plane 237 ml Ejection fraction, MOD, 2-plane 18 % Stroke volume, MOD, 2-plane 51 ml Ventricular septum Septal thickness, ED 9.29 mm Aortic valve Leaflet separation 21 mm 15-26 Left atrium Anterior-posterior dimension 45 mm Right ventricle RV internal dimension, ED, PLAX 19.7 mm 19-38 BASIC MEASUREMENTS ADULT Normal Aortic valve Leaflet separation 21 mm 15-26 Aorta Root diameter, ED 32 mm 20-37 DOPPLER MEASUREMENTS ADULT Normal Main pulmonary artery Pressure, S 27 mm Hg =30 Mitral valve Maximal regurgitant velocity 561 cm/s Tricuspid valve Regurgitant peak velocity 233 cm/s Peak RV-RA gradient, S 22 mm Hg Maximal regurgitant velocity 233 cm/s Systemic veins Estimated CVP 5 mm Hg Right ventricle RV pressure, S 27 mm Hg <30 LEGEND: Mean values are shown as u=mean value. Asterisk (*) montemayor values outside specified normal range. Prepared and signed by Silvia Ireland [id number]
== END 2017-01-31 18:00 | disposition home or self-care (01) | DRG 292 ==
LOC: NEPE 22:49 → NEDA 01-30 01:32 → NEDH 01-30 06:15 → HIMW 01-30 11:00
PROVIDERS: ADMIT Internal Medicine; ATTEND Internal Medicine
DX: I50.23 Acute on chronic systolic (congestive) heart failure (principal); M62.82 Rhabdomyolysis; D68.9 Coagulation defect, unspecified; I42.6 Alcoholic cardiomyopathy; D69.6 Thrombocytopenia, unspecified; R07.9 Chest pain, unspecified; F17.210 Nicotine dependence, cigarettes, uncomplicated; R74.8 Abnormal levels of other serum enzymes; Z95.810 Presence of automatic (implantable) cardiac defibrillator; F14.90 Cocaine use, unspecified, uncomplicated; E78.5 Hyperlipidemia, unspecified; B19.20 Unspecified viral hepatitis C without hepatic coma; M19.90 Unspecified osteoarthritis, unspecified site; E78.00 Pure hypercholesterolemia, unspecified; I10 Essential (primary) hypertension; Y90.6 Blood alcohol level of 120-199 mg/100 ml; F10.10 Alcohol abuse, uncomplicated; Z81.1 Family history of alcohol abuse and dependence; Z82.49 Family history of ischemic heart disease and other diseases of the circulatory system; Z82.3 Family history of stroke
CPT/HCPCS: 71010; 80053; 80307; 82550; 82552; 82948; 83690; 83735; 83880; 84100; 84484; 85025; 85610; 85730; 87641; 93005; 93306; 96360; 96361; J1650; J2060; J7040